=== PATIENT | male | born 1990 | race Caucasian/White ===

== ENCOUNTER 2017-03-07 17:12 | Emergency (ER) | payer OTHER ==
[~2017-03-07] VITALS: Ht 188 cm; Wt 137.8 kg
[~2017-03-07 17:12] MED LIST: ATROPINE 1100 DROP/5 RIGHT EYE; PRED FORTE100 DROP/5 RIGHT EYE
[2017-03-07 18:50] LABS: EOSINOPHIL (%) 1.3 % (0-5); EOSINOPHIL COUNT 0.2 K/uL (0-0.3); HEMATOCRIT 42.2 % (38.0-50.0); IMMATURE GRANULOCYTE (%) 0.5 % (0.0-0.7); IMMATURE GRANULOCYTE COUNT 0.1 K/uL; INSTRUMENT ABS NEUTROPHIL CT 9.8 K/uL; LYMPHOCYTE COUNT 1.7 K/uL (1.0-2.8); MCH 30.1 PG (29.0-34.0); MCHC 35.1 G/DL (30.0-36.0); MCV 85.9 FL (86-99); MEAN PLAT.VOLUME 9.8 uM^3 (9.0-12.4); MONOCYTE (%) 6.5 % (3-12); MONOCYTE COUNT 0.8 K/uL (0-0.8); NEUTROPHIL COUNT 9.8 K/uL (1.8-6.4); PLATELET COUNT 199 K/uL (156-360); RBC DIS.WIDTH-CV 11.9 % (11.8-14.6); RBC DIS.WIDTH-SD 37.3 % (39-53); RED BLOOD COUNT 4.91 M/uL (4.00-5.50); WHITE BLOOD COUNT 12.5 K/uL (4.1-10.2)
[2017-03-07 19:33] LABS: TROP-I INTERPRETATION NEGATIVE; TROPONIN-I < 0.01 ng/mL (0.0-0.30)
[2017-03-07 19:36] LABS: ERTH.SED.RATE 19 MM/HR (0-15)
[2017-03-07 19:38] LABS: CHLORIDE 102 mEq/L (99-109); POTASSIUM 3.8 mEq/L (3.7-5.4); SODIUM 138 mEq/L (136-147)
[2017-03-07 19:40] LABS: GLUCOSE 150 mg/dL (70-99)
[2017-03-07 19:41] LABS: ANION GAP 11 MEQ/L (2-14)
[2017-03-07 19:42] LABS: TOTAL BILIRUBIN 1.1 mg/dL (0.0-1.0)
[2017-03-07 19:43] LABS: ALKALINE PHOSPHATASE 52 IU/L (3-129)
[2017-03-07 19:44] LABS: GFR ESTIMATE (CALCULATED) > 59 mL/min/
[2017-03-07 19:45] LABS: UREA NITROGEN (BUN) 11 mg/dL (9-23)
[2017-03-07] MEDS ORDERED: ZYVOX600 MG PO (22:11)
[2017-03-07 22:55] VITALS: BP 120/75
[2017-03-08] MEDS ORDERED: ZUBSOLV 5.7-1.1 EACH SL (19:43)
[2017-03-08] MEDS ORDERED: TRAZODONE HCL100 MG PO (19:44)
[2017-03-08] MEDS ORDERED: ZUBSOLV 2.9-0.1 EACH SL (19:44)
[2017-03-08] MEDS ORDERED: TOPAMAX50 MG PO (19:44)
[2017-03-08] MEDS ORDERED: GEODON20 MG PO (19:44)
[2017-03-08] MEDS ORDERED: BUSPAR15 MG PO (19:44)
[2017-03-08] MEDS ORDERED: GUMMI BEAR MUL1 EACH PO (19:45)
== END 2017-03-07 22:57 | disposition home or self-care (01) ==
LOC: EME 17:12
PROVIDERS: Physician Assistant
DX: L03.114 Cellulitis of left upper limb (principal); L03.113 Cellulitis of right upper limb; F11.90 Opioid use, unspecified, uncomplicated; R07.89 Other chest pain; R06.02 Shortness of breath; F17.200 Nicotine dependence, unspecified, uncomplicated
CPT/HCPCS: 71020; 80053; 83605; 83880; 84484; 85025; 85651; 87040; 93005; J3370; J7040

== ENCOUNTER 2017-03-08 18:09 | Inpatient (IN) | payer OTHER ==
[~2017-03-08] VITALS: Ht 188 cm; Wt 135.8 kg
[~2017-03-08 18:09] MED LIST changes: +ZYVOX600 MG PO
[2017-03-08 18:58] LABS: EOSINOPHIL (%) 1.1 % (0-5); EOSINOPHIL COUNT 0.1 K/uL (0-0.3); HEMATOCRIT 42.4 % (38.0-50.0); IMMATURE GRANULOCYTE (%) 0.3 % (0.0-0.7); INSTRUMENT ABS NEUTROPHIL CT 8.5 K/uL; LYMPHOCYTE COUNT 2.1 K/uL (1.0-2.8); MCH 30.5 PG (29.0-34.0); MCHC 35.1 G/DL (30.0-36.0); MCV 86.9 FL (86-99); MEAN PLAT.VOLUME 9.5 uM^3 (9.0-12.4); MONOCYTE (%) 6.8 % (3-12); MONOCYTE COUNT 0.8 K/uL (0-0.8); NEUTROPHIL (%) 73.1 % (45-76); NEUTROPHIL COUNT 8.5 K/uL (1.8-6.4); PLATELET COUNT 211 K/uL (156-360); RBC DIS.WIDTH-CV 11.9 % (11.8-14.6); RBC DIS.WIDTH-SD 38.1 % (39-53); RED BLOOD COUNT 4.88 M/uL (4.00-5.50); WHITE BLOOD COUNT 11.6 K/uL (4.1-10.2)
[2017-03-08 19:11] LABS: CHLORIDE 105 mEq/L (99-109); POTASSIUM 3.8 mEq/L (3.7-5.4); SODIUM 141 mEq/L (136-147)
[2017-03-08 19:13] LABS: GLUCOSE 125 mg/dL (70-99)
[2017-03-08 19:14] LABS: ANION GAP 10 MEQ/L (2-14)
[2017-03-08 19:17] LABS: GFR ESTIMATE (CALCULATED) > 59 mL/min/; UREA NITROGEN (BUN) 13 mg/dL (9-23)
[2017-03-08] MEDS ORDERED: ZUBSOLV 5.7-1.1 EACH SL (19:43)
[2017-03-08] MEDS ORDERED: TOPAMAX50 MG PO (19:44)
[2017-03-08] MEDS ORDERED: BUSPAR15 MG PO (19:44)
[2017-03-08] MEDS ORDERED: GEODON20 MG PO (19:44)
[2017-03-08] MEDS ORDERED: TRAZODONE HCL100 MG PO (19:44)
[2017-03-08] MEDS ORDERED: ZUBSOLV 2.9-0.1 EACH SL (19:44)
[2017-03-08] MEDS ORDERED: GUMMI BEAR MUL1 EACH PO (19:45)
[2017-03-09 00:08] VITALS: BP 104/58
[2017-03-09 03:57] VITALS: BP 106/54
[2017-03-09 07:02] LABS: ANION GAP 7 MEQ/L (2-14); CHLORIDE 104 MEQ/L (99-109); GFR ESTIMATE (CALCULATED) > 59 mL/min/; SAMPLE HEMOLYSIS CHECK 0; SAMPLE ICTERIC CHECK 0; SAMPLE LIPEMIA CHECK 0; SODIUM 138 MEQ/L (136-147); UREA NITROGEN (BUN) 15 mg/dL (9-23)
[2017-03-09 07:05] LABS: GLUCOSE 92 mg/dL (70-99)
[2017-03-09 07:11] LABS: EOSINOPHIL (%) 4.4 % (0-5); EOSINOPHIL COUNT 0.4 K/uL (0-0.3); HEMATOCRIT 36.9 % (38.0-50.0); IMMATURE GRANULOCYTE (%) 0.4 % (0.0-0.7); INSTRUMENT ABS NEUTROPHIL CT 4.7 K/uL; LYMPHOCYTE COUNT 2.7 K/uL (1.0-2.8); MCH 30.9 PG (29.0-34.0); MCV 88.5 FL (86-99); MEAN PLAT.VOLUME 10.2 uM^3 (9.0-12.4); MONOCYTE (%) 9.1 % (3-12); MONOCYTE COUNT 0.8 K/uL (0-0.8); NEUTROPHIL (%) 54.6 % (45-76); NEUTROPHIL COUNT 4.7 K/uL (1.8-6.4); PLATELET COUNT 167 K/uL (156-360); RBC DIS.WIDTH-CV 12.3 % (11.8-14.6); RBC DIS.WIDTH-SD 39.8 % (39-53); RED BLOOD COUNT 4.17 M/uL (4.00-5.50); WHITE BLOOD COUNT 8.6 K/uL (4.1-10.2)
[2017-03-09 08:01] VITALS: BP 118/55
[2017-03-09 11:42] VITALS: BP 106/60
[2017-03-09 15:37] VITALS: BP 111/64
[2017-03-09 22:51] VITALS: BP 138/79
[2017-03-10 07:54] VITALS: BP 112/54
[2017-03-10] MEDS ORDERED: NICOTINE PATCH1 EAC1 TD (08:54)
[2017-03-10] MEDS ORDERED: CLINDAMYCIN HC300 MG PO (08:54)
[2017-03-10] MEDS ORDERED: ACIDOPHILUS LA1 EACH PO (08:54)
== END 2017-03-10 10:41 | disposition home or self-care (01) | DRG 603 ==
LOC: EME 18:09 → EDOF 21:49 → 5EAST 23:28
PROVIDERS: Emergency Medicine; Hospitalist
DX: L03.114 Cellulitis of left upper limb (principal); L03.113 Cellulitis of right upper limb; F17.200 Nicotine dependence, unspecified, uncomplicated; E66.9 Obesity, unspecified; Z68.38 Body mass index [BMI] 38.0-38.9, adult; F11.20 Opioid dependence, uncomplicated
CPT/HCPCS: 80048; 80202; 83605; 85025; 85651; 87040; J0572; J1650; J1885; J2405; J2543; J3370; J7030

== ENCOUNTER 2017-04-03 19:52 | Emergency (ER) | payer OTHER ==
[~2017-04-03] VITALS: Ht 188 cm; Wt 135.5 kg
[~2017-04-03 19:52] MED LIST changes: +ACIDOPHILUS LA1 EACH PO; +BUSPAR15 MG PO; +CLINDAMYCIN HC300 MG PO; +GEODON20 MG PO; +GUMMI BEAR MUL1 EACH PO; +NICOTINE PATCH1 EAC1 TD; +TOPAMAX50 MG PO; +TRAZODONE HCL100 MG PO; +ZUBSOLV 2.9-0.1 EACH SL; +ZUBSOLV 5.7-1.1 EACH SL
[2017-04-03 22:10] VITALS: BP 123/70
== END 2017-04-03 22:13 | disposition left against medical advice (07) ==
LOC: EME → EDBD 19:52 → EME 19:52
DX: T40.1X1A Poisoning by heroin, accidental (unintentional), initial encounter (principal); F17.200 Nicotine dependence, unspecified, uncomplicated
CPT/HCPCS: 99281; 99284; J2310

== ENCOUNTER 2017-10-24 19:02 | Emergency (ER) | payer OTHER ==
[~2017-10-24] VITALS: Ht 188 cm; Wt 139.7 kg
[2017-10-24 19:39] VITALS: BP 121/69
== END 2017-10-24 23:01 | disposition left against medical advice (07) ==
LOC: EME 19:02
DX: R68.89 Other general symptoms and signs (principal); Z53.21 Procedure and treatment not carried out due to patient leaving prior to being seen by health care provider